=== PATIENT | female | born 1955 | race Caucasian/White ===

== ENCOUNTER 2019-07-07 15:21 | Inpatient (IN) | payer BC ==
[2019-07-07] VITALS (359 sets, daily range): BP systolic 139–142; BP diastolic 91–102; PULSE 98–99; TEMP 98.1–98.2; O2SAT 81–97
[~2019-07-07] VITALS: Ht 160 cm; Wt 84.9 kg
[~2019-07-07 15:21] MED LIST: FOSAMAX 70MG TA70 MG PO; LIPITOR 40MG TA40 MG PO; ROXICODONE 55 MG/TAB PO; SYNTHROID0.1 MG/TAB PO; TYLENOL PM EXTR1 TA1 PO
[2019-07-07] MEDS ORDERED: SYNTHROID0.05 MG/TA PO (15:37)
[2019-07-07 15:51] LABS: BASO % 0.7 % (0.0-2.0); EOS # 0.1 (0.0-0.7); EOS % 1.3 % (0-4.0); GRAN # 4.1 (1.4-6.5); GRAN % 73.3 % (42.2-75.2); HEMATOCRIT 40.4 % (37.0-47.0); HEMOGLOBIN 12.7 g/dl (12.5-16.0); LYMPH # 1.1 (1.2-3.4); LYMPH % 19.3 % (20.0-51.0); MEAN CELL VOLUME 96 fl (80.0-100.0); MEAN CORPUSCULAR HEMOGLOBIN 30 pg (27.0-31.0); MEAN CORPUSCULAR HGB CONC 31 g/dl (33.0-37.0); MEAN PLATELET VOLUME 10.7 fl (7.4-10.4); MONO # 0.3 (0.1-0.6); MONO % 5.2 % (1.7-9.3); PLATELET COUNT 259 K/mm3 (130-400); RED BLOOD COUNT 4.19 M/mm3 (4.10-5.30)
[2019-07-07 16:00] LABS: INR 1.1 (0.8-3.0); PROTHROMBIN TIME 12.4 SECONDS (9.7-12.8)
[2019-07-07 16:02] LABS: ALBUMIN 4.5 gm/dL (3.5-5.0); BILIRUBIN,TOTAL 0.8 mg/dL (0.0-1.0); CALCIUM 9.6 mg/dL (8.4-10.2); CREATININE, serum 1.05 (0.52-1.25); POTASSIUM 4.1 mmol/L (3.4-5.0); TOTAL PROTEIN 7.6 gm/dL (6.4-8.2)
[2019-07-07 16:13] LABS: TROPONIN-I 0.018 ng/mL (0.000-0.035)
--- NOTE | 2019-07-07 19:52 | NUR ---
REPORT RECEIVED FROM DAYNE ROBLES.
[2019-07-08] VITALS (750 sets, daily range): BP systolic 110–129; BP diastolic 74–98; PULSE 77–97; TEMP 97.4–98; O2SAT 83–99
--- NOTE | 2019-07-08 01:06 | NUR ---
PT KEEPS HAVING A RUN OF SVT LASTING ABOUT 6 SECS, PT ASYMTOMATIC AND VS WNL. DR. OSBORN NOTIFIED AND ORDERED [facility] IN MORNING AND MONITOR OF THIS TIME. WILL FOLLOW.
[2019-07-08 05:30] LABS: BASO % 0.2 % (0.0-2.0); GRAN # 3.7 (1.4-6.5); GRAN % 82.3 % (42.2-75.2); HEMATOCRIT 42.4 % (37.0-47.0); HEMOGLOBIN 13.3 g/dl (12.5-16.0); LYMPH # 0.7 (1.2-3.4); LYMPH % 15.7 % (20.0-51.0); MEAN CELL VOLUME 97 fl (80.0-100.0); MEAN CORPUSCULAR HEMOGLOBIN 30 pg (27.0-31.0); MEAN CORPUSCULAR HGB CONC 31 g/dl (33.0-37.0); MEAN PLATELET VOLUME 11.1 fl (7.4-10.4); MONO # 0.1 (0.1-0.6); MONO % 1.1 % (1.7-9.3); PLATELET COUNT 243 K/mm3 (130-400); RED BLOOD COUNT 4.37 M/mm3 (4.10-5.30); REDCELL DISTRIBUTION WIDTH-CV 14.9 % (11.5-14.5)
[2019-07-08 05:42] LABS: CALCIUM 9.4 mg/dL (8.4-10.2); CREATININE, serum 0.95 (0.52-1.25); POTASSIUM 4.4 mmol/L (3.4-5.0)
--- NOTE | 2019-07-08 07:11 | NUR ---
Bedside report recieved from Love OSCAR. Patient awake and alert, participates in repor. Call light in reach, denies needs
--- NOTE | 2019-07-08 07:11 | NUR ---
REPORT GIVEN TO DANNY RN AT BEDSIDE.
--- NOTE | 2019-07-08 10:39 | NUR ---
DEANDRE attended clinical rounds with the team. The patient is to have a heart cath this day. After rounds DEANDRE met with the patient to complete initial intake. The patient lives alone in [place]. The patient has a shower bench and toilet chart chair. The patient is independent with ADLs. The patient's PCP is Dr. Rivera and patient receives medications from [facility] in [place]. The patient does not have advanced directives in the EMR but the patient was interested in a DPOA-HC form. The patient designated her friends Haydee and Yazan Fitzgerald. DEANDRE and the patient's nurse Payal witnessed. A copy was placed in the chart and the original and copies were provided to the patient. DEANDRE will continue to follow to ensure a safe discharge.
--- NOTE | 2019-07-08 14:06 | NUR ---
To geochemical laboratory technician via bed with Trudi OSCAR and Milagro OSCAR
--- NOTE | 2019-07-08 17:46 | NUR ---
Recieved call from Triage nurse at [facility], Dr. Eric Negrete with Cardiology is accepting transfer. Awaiting room assignment at this time
--- NOTE | 2019-07-08 18:17 | NUR ---
Recieved call from [facility] Triage line that we do have room assignment; HC 428. Will notify house sup to arrange EMS transport Mt't Haydee REYES, meghan and given keys to patient's car per patient's request. The rest of belongings will be sent along with her
--- NOTE | 2019-07-08 19:05 | NUR ---
TRANSFER DOCUMENTS SIGNED AND FILLED OUT AND SIGNATURES WITNESSED BY THIS RN. PATIENT VERBALIZES UNDERSTANDING ABOUT THE PLAN OF CARE TO TRANSFER TO [facility] WITH [facility]. I CALLED [facility] AT APPROX 1853. THE DISPATCHER STATES THAT THE CREW WILL BE HERE SHORTLY TO AUTOMOBILE BODY REPAIR CHIEF THE PATIENT. DAYNE CAMARGO NOTIFIED.
--- NOTE | 2019-07-08 19:34 | NUR ---
Report given to Ashley OSCAR at Med
--- NOTE | 2019-07-08 19:50 | NUR ---
To [facility] via [facility].
== END 2019-07-08 19:50 | disposition short-term general hospital (02) | DRG 287 ==
LOC: COL.ER 15:21 → ICU 15:44
PROVIDERS: Emergency Medicine; ADMIT Student in an Organized Health Care Education/Training Program
PROC: 4A023N7 Measurement of Cardiac Sampling and Pressure, Left Heart, Percutaneous Approach (ICD-10-PCS; principal; 2019-07-08)
PROC: B2111ZZ Fluoroscopy of Multiple Coronary Arteries using Low Osmolar Contrast (ICD-10-PCS; 2019-07-08)
DX: I11.0 Hypertensive heart disease with heart failure (principal); I50.33 Acute on chronic diastolic (congestive) heart failure; E03.9 Hypothyroidism, unspecified; I34.1 Nonrheumatic mitral (valve) prolapse; I27.20 Pulmonary hypertension, unspecified; I34.0 Nonrheumatic mitral (valve) insufficiency; E78.5 Hyperlipidemia, unspecified; M81.0 Age-related osteoporosis without current pathological fracture; Z79.891 Long term (current) use of opiate analgesic; Z79.1 Long term (current) use of non-steroidal anti-inflammatories (NSAID)
CPT/HCPCS: 99222-AI; 99233-AI; 99239; C1894; J1200; J1644; J1940; J2250; J2704; J2930; J7030; J7512